=== PATIENT | female | born 1945 | race Caucasian/White ===

== ENCOUNTER 2016-10-28 11:09 | Inpatient (IN) | payer MEDICARE ==
[~2016-10-28] VITALS: Ht 157.5 cm; Wt 72.3 kg
[~2016-10-28 11:09] MED LIST: ASPI81TA82 PO; ATEN1TAB75 PO; CALTTAB5 PO; CETI10CH PO; DYAZ37.57 PO; FURO20TA PO; HYDR-3580 PO; KONS520C PO; POLY119S PO; POTA-267 PO; PRIL20CA PO; TRAZ50TA4 PO; VALA500T PO; ZOCO40TA PO
[2016-11-10] MEDS ORDERED: GENTAMICIN SULFATE 80 MG/2 ML VIAL ONE (07:50)
[2016-11-10] MEDS ORDERED: INSULIN HUMAN REGULAR 1,000 UNITS/10 ML VIAL SQ PRN (08:00)
[2016-11-10] MEDS ORDERED: LACTATED RINGER'S 1000 ML IV PRN (08:00)
[2016-11-10] MEDS ORDERED: METOPROLOL TARTRATE 25 MG TAB PO PRN (08:00)
[2016-11-10] MEDS ORDERED: CHLORHEXIDINE GLUCONATE 2 % 1 PACK (2 CLOTHS) TOPICAL PRN (08:00)
[2016-11-10] MEDS ORDERED: SODIUM CHLORIDE 0.9% IV SCH (08:00)
[2016-11-10] MEDS ORDERED: ceFAZolin 2 GM PREMIX 50 ML IV SCH (08:00)
[2016-11-10] MEDS ORDERED: TRANEXAMIC ACID IV SCH (08:00)
[2016-11-10] MEDS ORDERED: SODIUM CHLORID 0.9% 500 ML IV PRN (08:00)
[2016-11-10] MEDS ORDERED: VANCOMYCIN 1000 MG/NS 250 ML (for <70 kg) IV SCH ×2 (08:00)
[2016-11-10] MEDS ORDERED: TRIA37.53 PO (08:24)
[2016-11-10] MEDS ORDERED: TRAZ50TA12 PO (08:24)
[2016-11-10] MEDS ORDERED: OMEP20TA PO (08:24)
[2016-11-10] MEDS ORDERED: CALCTAB80 PO (08:24)
[2016-11-10] MEDS ORDERED: ZYRT10CA PO (08:24)
[2016-11-10] MEDS ORDERED: ASPI81TA81 PO (08:24)
[2016-11-10] MEDS ORDERED: SIMV40TA PO (08:24)
[2016-11-10] MEDS ORDERED: FURO20TA PO (08:24)
[2016-11-10] MEDS ORDERED: POTA-243 PO (08:24)
[2016-11-10] MEDS ORDERED: BIOT50005 PO (08:24)
[2016-11-10] MEDS ORDERED: LOSA100T PO (08:24)
[2016-11-10] MEDS ORDERED: VALA500T PO (08:24)
[2016-11-10] MEDS ORDERED: CELE200C PO (08:24)
[2016-11-10] MEDS ORDERED: MIRA33504 PO (08:24)
[2016-11-10 08:36] VITALS: BP 174/78; PULSE 71; RESP 18; TEMP 97.9; O2SAT 97
[2016-11-10] MEDS ORDERED: PROPOFOL 200 MG/20 ML AMP IV ONE (08:55)
[2016-11-10] MEDS ORDERED: NORMOSOL R INJ 1,000 ML IV ONE (08:56)
[2016-11-10] MEDS ORDERED: LACTATED RINGER'S 1000 ML INJ 1,000 ML IV ONE (08:56)
[2016-11-10] MEDS ORDERED: PHENYLEPH/NS 1000 MCG/10 ML SYR IV ONE (08:56)
[2016-11-10] MEDS ORDERED: FAMOTIDINE 20 MG/2 ML VIAL ONE (09:21)
[2016-11-10] MEDS ORDERED: diphenhydrAMINE HCL 50 MG/ML VIAL ONE (09:21)
[2016-11-10] MEDS ORDERED: MIDAZOLAM HCL 2 MG/2 ML VIAL ONE (10:03)
[2016-11-10] MEDS ORDERED: DEXAMETHASONE SOD PHOS 4 MG/ML VIAL ONE (10:03)
[2016-11-10] MEDS ORDERED: fentaNYL CITRATE 250 MCG/5 ML AMP ONE (10:50)
[2016-11-10] MEDS ORDERED: LACTATED RINGER'S 1000 ML INJ 1,000 ML IV SCH (12:51)
[2016-11-10] MEDS ORDERED: ONDANSETRON HCL 4 MG/2 ML VIAL IVP PRN (13:00)
[2016-11-10] MEDS ORDERED: NALOXONE HCL 0.4 MG/ML AMP IV PRN ×2 (13:00)
[2016-11-10] MEDS ORDERED: POTASSIUM CHLORIDE 10 MEQ CONTROLLED RELEASE TAB PO PRN (13:00)
[2016-11-10] MEDS ORDERED: Post-op Orders (for Pharmacy) MISC XX ONE (13:00)
[2016-11-10] MEDS ORDERED: ZOLPIDEM TARTRATE 5 MG TAB PO PRN (13:00)
[2016-11-10] MEDS ORDERED: ACETAMINOPHEN/HYDROcodone 325 MG/7.5 MG TAB PO PRN ×2 (13:00)
[2016-11-10] MEDS ORDERED: HYDROmorphone HCL PCA 6 MG/30 ML IV SCH (13:00)
[2016-11-10] MEDS ORDERED: MAGNESIUM HYDROXIDE SUSP 30 ML CUP PO PRN (13:00)
[2016-11-10] MEDS ORDERED: SODIUM CHLORIDE 0.9% FLUSH 5 ML FLUSH IVF PRN (13:00)
[2016-11-10] MEDS ORDERED: FUROSEMIDE 20 MG TAB PO PRN (13:00)
--- NOTE | 2016-11-10 13:01 | PD.OP ---
cc: Gabe Vaughan MD Operative Report Date of Surgery: Nov 10, 2016 Preoperative Diagnosis: Osteoarthritis right shoulder Postoperative Diagnosis: Same Procedure: Right total shoulder replacement arthroplasty, deltopectoral incision Anesthesia: Gen. Surgeon: Gabe Vaughan Head Sawyer(s): EMILY Matthew Operation and Findings: EBL: 150 cc. NOTE: Manjula Matthew PA-C was present for the entire surgical procedure as my painter assistant. In my medical opinion her skill and care was necessary for proper management of this patient. INDICATION: This patient is a 71-year-old female with progressive arthritis of both shoulders. 3 years ago she came to a left total shoulder replacement by the undersigned in the [facility]. She's had ongoing conservative care for right shoulder including injections, medications, altered activities. She now presents for surgical treatment. COMPONENTS: [employer] Equ[employer]ox. STEM: 13 mm HEAD: 44, short GLENOID: Small, type a, keeled, cemented PROCEDURE: The patient brought the operating room and anesthetized in the supine position. The patient was placed on a standard table. The patient is placed in a semi-beachchair position, and the left shoulder was over the edge of the table allowing it to be brought into full extension. The head was placed in the Bonds adapter and secured properly. The right arm and shoulder was scrubbed with alcohol followed by Hibiclens followed by chloro prep and draped sterilely. And antibiotics were given within 1 hour time window. A timeout was done. A deltopectoral incision was made. The cephalic vein was mobilized with the deltoid. The proximal humerus was exposed. The biceps tendon was identified and protected. The subscapularis muscle was identified. A stay suture was placed within the subscapularis tendon. The tendon was released approximately 8 mm from its attachment. The inferior and anterior capsules were released. The head was cut with approximately 30 of retroversion. That head was removed. The glenoid was exposed further. This was sized for a small glenoid component. Provisional measuring and preparation was done. A temporary glenoid component was positioned. The proximal humerus was exposed. The supraspinatus tendon was protected. A autocutter hole was placed within the humerus and progressively reamed up to a size 13 reamer anticipating the same size stem. This was then broached. A trial reduction showed that we were able to use a proper head size. Balancing was very satisfactory. Retroversion was very satisfactory. Overall fit was quite good. The final preparation of the glenoid was accomplished. The glenoid component was cemented with methylmethacrylate. Excessive cement was removed. The component was quite stable. The attention was directed to the humerus. The final component was positioned. The final head was trialed and a trial reduction showed excellent balancing. Final components were assembled and impacted. The shoulder was reduced. The shoulder was stable to approximately 60 of external rotation. With traction we could sublux the humeral head approximately one third the way down along the edge of the glenoid. This was stable in internal rotation and external rotation. The wound was irrigated copious he. Hemostasis was controlled. The subscapularis muscle was repaired with interrupted #2 Tycron sutures. A small stay suture was placed in the deltopectoral interval. Subcutaneous tissue was approximated with 2-0 Vicryl suture and skin with running intradermal 3-0 Vicryl followed by benzoin and Steri-Strips. The sponge count, needle counts and instrument counts were all correct. Sterile dressing was applied. The patient placed into a sling. The patient was awakened and taken to the recovery room in satisfactory condition The wound was irrigated copiously. Hemostasis was controlled. The deltopectoral interval was tacked down with 2-0 Vicryl suture. Subcutaneous tissue was approximated with 2-0 Vicryl and skin with running #3-0 Vicryl followed by benzoin and Steri-Strips. Sponge count needle counts and sponge counts were all correct. The patient tolerated procedure well was taken to recovery room in satisfactory condition. FINDINGS: This patient had extensive osteoarthritis of the right shoulder. Alignment was satisfactory. This appeared to be very stable. No complication was appreciated. Gabe Vaughan MD Nov 10, 2016 13:01
[2016-11-10] MEDS ORDERED: HYDR-3580 PO (13:04)
[2016-11-10] MEDS: PCA - TOTAL MG MORPHINE DELIVERED PER SHIFT SCH ×2 (14:00→20:38)
[2016-11-10] MEDS: PCA - TOTAL MG DILAUDID DELIVERED PER SHIFT OTHER SCH ×2 (14:00→22:00)
[2016-11-10] MEDS ORDERED: *LABETALOL HCL 100 MG/20 ML VIAL PERIprocedural Use ONLY ONE (14:04)
--- NOTE | 2016-11-10 14:25 | RADRPT ---
EXAM DATE/TIME: 11/10/2016 13:33 [facility] COMPARISON: No previous studies available for comparison. INDICATIONS : Post op right shoulder MEDICAL HISTORY : None. SURGICAL HISTORY : total right shoulder ENCOUNTER: Initial ACUITY: 1 day PAIN SCORE: Non-responsive. LOCATION: Right shoulder FINDINGS: Patient is status post right shoulder arthroplasty. There is no radiographic evidence of loosening. N o fractures are seen. Cardiomegaly is present. CONCLUSION: Satisfactory appearance of right shoulder arthroplasty. Jake Spangler MD on November 10, 2016 at 14:22 Board Certified Radiologist. This report was verified electronically.
[2016-11-10 15:20] VITALS: BP 143/68; PULSE 84; RESP 18; TEMP 96.3; O2SAT 98
[2016-11-10] MEDS: diphenhydrAMINE HCL 25 MG CAP PO PRN (16:26)
--- NOTE | 2016-11-10 17:06 | HHI.DCPOC ---
Discharge Care Plan Diagnosis: (1) Right shoulder pain (2) Osteoarthritis of right shoulder Your Health Problems Are: Incision/Drains Swelling Goals to Promote Your Health * To prevent worsening of your condition and complications * To maintain your health at the optimal level Directions to Meet Your Goals Take your medications as prescribed Follow your dietary instruction Follow activity as directed Keep your appointments as scheduled Take your immunizations and boosters as scheduled If your symptoms worsen call your PCP, if no PCP go to Urgent Care Center or Emergency Room Smoking is Dangerous to Your Health. Avoid second hand smoke Call the 24-hour hour crisis hotline for domestic abuse at Bertha Rasmussen Nov 10, 2016 17:06
--- NOTE | 2016-11-10 17:09 | HHI.DS ---
Discharge Summary Admission Date Nov 10, 2016 at 07:25 Discharge Date: Nov 11, 2016 Admitting Diagnosis see below Diagnosis: (1) Right shoulder pain Diagnosis: Principal (2) Osteoarthritis of right shoulder Diagnosis: Principal Procedures Right total shoulder arthroplasty Brief History This is a 71 year old female patient with a long history of bilateral shoulder pain. She sought out medical treatment and eventually had left total shoulder replacement. She did well postoperatively. She then began directing more care towards her right shoulder. She has multiple injections and physical therapy. Her function continued to decline. Imaging was repeated and she was found to have advancing severe osteoarthritis. Surgical treatment was recommended and she elected to move forward. She presents now for surgical treatment of the above. Hospital Course Surgical treatment was performed on the day of admission without complication. She recovered well in PACU and was transferred to the orthopedic floor. Her pain was controlled with IV and oral medications. She was able to get significant pain relief from her right upper extremity block. That began to wear off morning postop day 1. She was compliant with her sling and all range of motion restrictions. After one day she was found be stable and discharged home with instruction to continue her sling time piece repairer for 2 weeks, to avoid external rotation past 15 degrees and to pursue a high fiber diet for the next 3 -5 days. She was given a prescription for narcotic pain medication to take as needed. Pt Condition on Discharge: Stable Discharge Disposition: Discharge Home Discharge Instructions Diet Instructions: As Tolerated, No Restrictions, High Fiber Diet Activities You Can Perform: See Additionl Instruction Activities to Avoid: Strenuous Activity Additional Activity Instruc.: No external rotation greater than 15. Sling time piece repairer for 2 weeks then increased motion. New Medications: Hydrocodone-Acetaminophen (Hydrocodone-Acetaminophen) 7.5-325 mg Tab 1 TAB PO Q4H PRN PAIN LESS THAN 5 ON SCALE #40 TAB Continued Medications: Aspirin DR (Aspir-81) 81 Mg Tabdr 1 TAB PO HS Biotin (Biotin) 5,000 Mcg Cap 57340 MCG PO DAILY #1 BOTTLE Calcium Carbonate-Cholecalciferol (Calcium 1000 + D) 1,000-800 Mg-Unit Tab 1 TAB PO BID TAB Celecoxib (Celebrex) 200 Mg Cap 200 MG PO DAILY Pain Management Ref 0 CAP Cetirizine (Zyrtec Allergy) 10 Mg Cap 10 MG PO DAILY Allergies Ref 0 CAP Furosemide (Furosemide) 20 Mg Tab 20 MG PO DAILY PRN edema #30 Ref 0 TAB Losartan (Losartan) 100 Mg Tab 100 MG PO DAILY Blood Pressure Management #30 Ref 0 TAB Omeprazole (Omeprazole) 20 Mg Tab 20 MG PO DAILY #30 Ref 0 TAB Polyethylene Glycol 3350 Powder (Miralax Powder) 17 Gm Powd 17 GM PO HS Mix and dissolve one measuring cap-ful (17 grams) in water or juice. Constipation #1 Ref 0 BOTTLE Potassium Chloride ER (Klor-Con 10) 10 Meq Tab 10 MEQ PO DAILY PRN CRAMPS #30 Ref 0 TAB Simvastatin (Simvastatin) 40 Mg Tab 40 MG PO HS Cholesterol Management #30 Ref 0 TAB Trazodone (Trazodone) 50 Mg Tab 75 MG PO HS Control Depression #30 Ref 0 TAB Triamterene-Hydrochlorothiazide (Triamterene-Hydrochlorothiazide) 37.5-25 Mg Cap 1 CAP PO DAILY #30 Ref 0 CAP Valacyclovir (Valacyclovir) 500 Mg Tab 500 MG PO DAILY PRN breakout #30 Ref 0 TAB Bertha Rasmussen Nov 10, 2016 17:09
[2016-11-10 20:05] VITALS: BP 118/75; PULSE 95; RESP 17; TEMP 97.5; O2SAT 93
[2016-11-10] MEDS: DOCUSATE SODIUM 50 MG/SENNA 8.6 MG TAB PO SCH (20:38)
[2016-11-10] MEDS: SODIUM CHLORIDE 0.9% FLUSH 5 ML FLUSH IVF SCH (20:39)
[2016-11-10] MEDS ORDERED: traZODone HCL 50 MG TAB PO SCH (21:00)
[2016-11-10] MEDS ORDERED: PRAVASTATIN SOD 80 MG TAB PO SCH (21:00)
[2016-11-11 00:05] VITALS: BP 116/68; PULSE 82; RESP 17; TEMP 97.9; O2SAT 95
[2016-11-11 04:05] VITALS: BP 129/71; PULSE 77; RESP 17; TEMP 98.7; O2SAT 97
[2016-11-11] MEDS: PCA - TOTAL MG DILAUDID DELIVERED PER SHIFT OTHER SCH (06:00)
--- NOTE | 2016-11-11 08:04 | PD.ORT.PN ---
Subjective Subjective Remarks Doing well. Able to get rest last night. Arm still numb but sensation returning. Pain very well controlled at this time. No other complaints or concerns. No new CP or SOB. Objective Vitals Vital Signs Date Time Temp Pulse Resp B/P Pulse Ox O2 Delivery O2 Flow Rate FiO2 11/11/16 07:08 Room Air 11/11/16 04:05 98.7 77 17 129/71 97 11/11/16 00:05 97.9 82 17 116/68 95 11/10/16 20:05 97.5 95 17 118/75 93 11/10/16 15:20 96.3 84 18 143/68 98 11/10/16 14:45 78 16 140/84 95 Nasal Cannula 2 11/10/16 14:30 85 16 146/101 96 Nasal Cannula 2 11/10/16 14:15 80 16 139/89 98 Nasal Cannula 2 11/10/16 14:06 14 11/10/16 14:00 98 16 165/103 98 Nasal Cannula 2 11/10/16 13:45 96 16 168/97 100 Nasal Cannula 4 11/10/16 13:30 108 16 171/101 98 Nasal Cannula 4 11/10/16 13:22 97.9 95 16 160/91 98 Nasal Cannula 4 11/10/16 08:36 97.9 71 18 174/78 97 I/O 11/10/16 11/10/16 11/10/16 11/11/16 11/11/16 11/11/16 07:00 15:00 23:00 07:00 15:00 23:00 Intake Total 1100 ml 240 ml 120 ml Output Total 850 ml Balance 250 ml 240 ml 120 ml Intake Oral 240 ml 120 ml IV Total 100 ml Other 1000 ml Output Urine Total 550 ml Estimated Blood Loss 300 ml # Voids 2 3 # Bowel Movements 0 1 Imaging Last 24 hours Impressions Shoulder X-Ray 11/10/16 1251 Signed Impressions: Service Date/Time: Thursday, November 10, 2016 13:33 - CONCLUSION: Satisfactory appearance of right shoulder arthroplasty. Jake Spangler MD Procedures Right total shoulder arthroplasty Objective Remarks Laying in bed, Sling in place NAD VSS RUE Shoulder sling in place, Dressing c/d/i at shoulder, no erythema or swelling distal +motor brachiorad 4/5, +/- sens hand, automobile mechanic apprentice 4/5 Assessment & Plan Ortho Post Op Day #: 1 Problem List: (1) Right shoulder pain (2) Osteoarthritis of right shoulder Assessment and Plan pod#1 s/p R TSA PO pain meds as needed Hold dressing changes unless saturated. Sling fulltime for first 2 weeks. No ext rotation past 15 degrees. D/C home today as long as pain in controlled after block wears off. F/U outpatient in 2 weeks as scheduled. Bertha Rasmussen Nov 11, 2016 08:04
[2016-11-11 08:17] VITALS: BP 142/70; PULSE 77; RESP 16; TEMP 97.7; O2SAT 98
[2016-11-11] MEDS ORDERED: MULTIVITAMINS/MINERALS THERAPEUTIC TAB PO SCH (09:00)
[2016-11-11] MEDS: DOCUSATE SODIUM 50 MG/SENNA 8.6 MG TAB PO SCH (09:00)
[2016-11-11] MEDS ORDERED: TRIAMTERENE/HCTZ 37.5 MG/25 MG CAP PO SCH (09:00)
[2016-11-11] MEDS ORDERED: PANTOPRAZOLE SOD 20 MG DELAYED RELEASE TAB PO SCH (09:00)
[2016-11-11] MEDS ORDERED: LOSARTAN 50 MG TAB PO SCH (09:00)
[2016-11-11] MEDS: SODIUM CHLORIDE 0.9% FLUSH 5 ML FLUSH IVF SCH (09:00)
[2016-11-11] MEDS ORDERED: CETIRIZINE HCL 10 MG TAB PO SCH (09:00)
[2016-11-11] MEDS: diphenhydrAMINE HCL 25 MG CAP PO PRN (11:40)
[2016-11-11 11:44] VITALS: BP 162/74; PULSE 73; RESP 16; TEMP 98.1; O2SAT 97
[2016-11-11 14:23] VITALS: O2SAT 96
== END 2016-11-11 15:55 | disposition home or self-care (01) | DRG 483 ==
LOC: HSDI 11-10 07:25 → N06B 11-10 14:20 → HSDI 11-10 14:20 → N06A 11-10 14:58
PROVIDERS: ADMIT Orthopaedic Surgery Orthopaedic Surgery of the Spine; ATTEND Orthopaedic Surgery Orthopaedic Surgery of the Spine
PROC: 0RRJ0JZ Replacement of Right Shoulder Joint with Synthetic Substitute, Open Approach (ICD-10-PCS; principal; 2016-11-10 10:22)
DX: M19.011 Primary osteoarthritis, right shoulder (principal); Z96.612 Presence of left artificial shoulder joint
CPT/HCPCS: 73020; 94150; C1776; J0690; J1100; J1170; J1200; J1580; J2250; J2370; J3010; J3370; J7050; J7120